=== PATIENT | female | born 1990 | race Caucasian/White ===

== ENCOUNTER 2019-03-13 16:53 | Inpatient (IN) | payer OTHER ==
[2019-03-13] MEDS ORDERED: METHYLERGONOVINE 0.2 MG/ML 1 ML AMP IM PRN (17:21)
[2019-03-13] MEDS ORDERED: CARBOPROST TROMETHAMINE 250 MCG/ML 1 ML AMP IM PRN (17:21)
[2019-03-13] MEDS ORDERED: TERBUTALINE 1 MG/ML VIAL SQ PRN (17:21)
[2019-03-13] MEDS ORDERED: LIDOCAINE 0.5% (PF) 5 MG/ML (50 ML SDV) SQ PRN (17:21)
[2019-03-13] MEDS ORDERED: OXYTOCIN 10 UNIT/ML 1 ML VIAL IM PRN (17:21)
[2019-03-13] MEDS ORDERED: BUTORPHANOL 1 MG/ML 1 ML VIAL IV PRN (17:23)
[2019-03-13] MEDS: LACTATED RINGERS 1,000 ML IV SCH ×3 (18:01→21:27)
[2019-03-13] MEDS: OXYTOCIN 30 UNITS/500 ML NS 30 UNIT in SALINE 1 500ML.BAG IV SCH (18:02)
[2019-03-13 18:15] VITALS: BMI 33.1
[2019-03-13 18:19] LABS: Basophils % (A) 0 %; Eosinophils # (A) 0.1 k/uL (0-0.7); Eosinophils % (A) 1 %; HCT 38.6 % (34.0-46.0); HGB 12.7 gm/dL (11.4-16.0); Lymphocytes # (A) 1.5 k/uL (1.0-4.8); Lymphocytes % (A) 13 %; MCH 29.2 pg (25.0-35.0); MCHC 32.8 g/dL (31.0-37.0); MCV 89.1 fL (80.0-100.0); Mean Platelet Volume 8.1; Monocytes # (A) 0.6 k/uL (0-1.0); Monocytes % (A) 5 %; Neutrophils # (A) 9.3 k/uL (1.3-7.7); Neutrophils % (A) 79 %; Platelet Count 296 k/uL (150-450); RBC 4.33 m/uL (3.80-5.40); RDW 14.7 % (11.5-15.5); WBC 11.7 k/uL (3.8-10.6)
--- NOTE | 2019-03-13 18:36 | P.HPOB ---
History of Present Illness H&P Date: 03/13/19 Chief Complaint: 40 and one sevenths weeks, spontaneous rupture of membranes, early labor The patient is a 28-year-old 3 para 1011 admitted at 40 and one sevenths weeks as established by early ultrasound. She presents to labor and delivery with contractions and possible rupture of membranes which is confirmed in triage. There is some question as to when rupture may have occurred, possibly as early as this morning. All signs are reassuring with a reactive NST and irregular contractions. Her has been essentially uncomplicated though she did have a marginal lateral cord insertion for which growth ultrasounds were followed, the most recent at approximately 35 weeks demonstrating growth at that 91st percentile. Group B strep status is negative. Obstetrical history: 3 para 1011 with 1 early elective interruption of and one normal spontaneous vaginal delivery without complications. Current statistics are listed in history of present illness. EDC of 03/12/2019 was established by early ultrasound. Laboratory workup demonstrates a blood type of A+ with a negative antibody screen. Rubella status is immune. The remainder of the laboratory workup was within normal limits that she did have an early urinary tract infection which was treated and cured. One hour Glucola was within normal limits and group B strep status is negative. Gynecologic history: Unremarkable with no history of any infections to include STDs. Review of Systems Review of systems is confined to history of present illness. Past Medical History Past Medical History: No Reported History History of Any Multi-Drug Resistant Organisms: None Reported Past Surgical History: No Surgical Hx Reported Past Anesthesia/Blood Transfusion Reactions: No Reported Reaction Past Psychological History: No Psychological Hx Reported Smoking Status: Never smoker Past Alcohol Use History: None Reported Past Drug Use History: None Reported - Past Family History Mother Family Medical History: No Reported History Medications and Allergies Home Medications Medication Instructions Recorded Confirmed Type Pnv,Calcium 72/Iron/Folic Acid 1 tab PO DAILY 07/27/16 03/13/19 History [ Plus Tablet] Allergies Allergy/AdvReac Type Severity Reaction Status Date / Time No Known Allergies Allergy Verified 03/13/19 17:47 Exam Vital Signs Temp Pulse Resp BP Pulse Ox 03/13/19 17:19 98.3 F 94 16 125/77 98 Intake and Output 03/13/19 03/13/19 03/13/19 06:59 14:59 22:59 Other: Weight 90.446 kg In general, this is a well-developed, well-nourished white female in no acute distress. Her heart has a regular rhythm and rate without murmur. Her lungs are clear to auscultation bilaterally in all kim. Her abdomen is gravid, nondistended, has normal active bowel sounds, is soft, nontender, and without any palpable masses aside from uterine fundus. Her extremities are without any cyanosis, clubbing, or significant edema and are nontender to palpation bilatera lly. Digital cervical examination done traits of surgery approximate 2 cm dilated, 60% effaced, with the vertex in presentation at -2 station. Rupture of membranes of bag of water remaining in front of the head is carried out demonstrating possible light meconium-stained fluid. Results Result Diagrams: 03/13/19 17:55 Abnormal Lab Results - Last 24 Hours (Table) 03/13/19 Range/Units 17:55 WBC 11.7 H (3.8-10.6) k/uL Neutrophils # 9.3 H (1.3-7.7) k/uL Assessment and Plan (1) Spontaneous rupture of amniotic membranes Current Visit: No Status: Acute Code(s): ZBC9467 - SNOMED Code(s): 223780426 Plan: As the timing of spontaneous rupture is unclear, Pitocin augmentation has been started. I have further ruptured the membranes in front of the vertex. She will continue to have close maternal and surveillance and expectant management will be practiced. She is a good candidate for either IV or epidural analgesia, whichever she may choose. She has requested an epidural which will be placed once more active labor pattern is noted.
[2019-03-13] MEDS ORDERED: ROPIVACAINE 5MG/ML 20ML VIAL ONE (20:40)
[2019-03-13] MEDS ORDERED: SODIUM CHLORIDE 0.9% 100 ML BAG ONE (20:40)
[2019-03-13] MEDS ORDERED: fentaNYL (PF) 50 MCG/ML 5 ML AMP ONE (20:40)
[2019-03-14] MEDS ORDERED: ACETAMINOPHEN TAB 325 MG TAB PO PRN (00:31)
[2019-03-14] MEDS ORDERED: HYDROCORTISONE 2.5% RECTAL CREAM 30 GM TUBE RECTAL PRN (00:31)
[2019-03-14] MEDS ORDERED: WITCH HAZEL 1 EACH MED..PAD TOPICAL PRN (00:31)
[2019-03-14] MEDS ORDERED: SIMETHICONE 80 MG CHEWABLE PO PRN (00:31)
[2019-03-14] MEDS ORDERED: HYDROcodone/APAP 7.5-325MG 1 EACH TAB PO PRN (00:31)
[2019-03-14] MEDS ORDERED: diphenhydrAMINE 25 MG CAP PO PRN (00:31)
[2019-03-14] MEDS ORDERED: LANOLIN CREAM 5 GM TUBE TOPICAL PRN (00:31)
[2019-03-14] MEDS ORDERED: ZOLPIDEM 5 MG TAB PO PRN (00:31)
[2019-03-14] MEDS ORDERED: diphenhydrAMINE 50 MG CAP PO PRN (00:31)
[2019-03-14] MEDS ORDERED: diphenhydrAMINE 50 MG/ML 1 ML VIAL IVP PRN ×2 (00:31)
[2019-03-14] MEDS ORDERED: HYDROcodone/APAP 5-325MG 1 EACH TAB PO PRN (00:31)
[2019-03-14] MEDS ORDERED: BENZOCAINE/MENTHOL SPRAY 1 GM/SPRAY AEROSOL TOPICAL PRN (00:31)
--- NOTE | 2019-03-14 00:35 | P.PROBDLV ---
Vaginal Delivery Note - . Vaginal Delivery Note: The patient is a 28-year-old 3 para 1011 admitted at 40 and one sevenths weeks by good dating parameters. She is admitted with documented spontaneous rupture of membranes since possibly mid-to-late morning. Her was uncomplicated though she did have a marginal cord insertion by ultrasound and serial growth was demonstrated to be normal with her final growth ultrasound estimate at the 91st percentile. On labor and delivery, all signs were reassuri ng. She underwent rupture of membranes in front of the head which demonstrated possible light meconium-stained fluid. She had an epidural catheter placed her on the onset of the active phase of labor and made fairly rapid progress through the active phase to complete. She then pushed over the course of approximately 20 minutes to a normal spontaneous vaginal delivery of a viable 9 lbs. 3 oz. baby boy with Apgars of 9 at 1 minute and 9 at 5 minutes delivered in the right occiput anterior position. There was a mild shoulder dystocia encountered which was reduced solely with Raul maneuver. The placenta was delivered spontaneously, intact, and grossly normal with a grossly normal marginally inserted three-vessel cord. A second-degree midline laceration was noted, likely over the site of a previous laceration or episiotomy scar and was repaired in standard fashion using 3-0 chromic catgut without difficulty. Estimated blood loss for the case is approximately 150 mL. There were no complications. All sponge, instrument, and needle counts were correct. Both mother and infant are resting comfortably in recovery.
[2019-03-14] MEDS ORDERED: OXYTOCIN 20 UNITS/1000 ML NS 1,000 ML IV SCH (00:45)
[2019-03-14] MEDS: IBUPROFEN 600 MG TAB PO PRN ×3 (06:39→19:39)
[2019-03-14] MEDS: SENNOSIDES-DOCUSATE SODIUM 1 EACH TAB PO SCH ×2 (09:06→19:40)
--- NOTE | 2019-03-14 09:41 | P.PNOBGVD ---
Subjective - Subjective Patient reports: Reports appetite normal, Reports voiding normally, Reports pain well controlled, Reports ambulating normally : doing well Objective - Latest Vital Signs Latest vital signs: Vital Signs Temp Pulse Resp BP Pulse Ox 03/14/19 09:04 98.2 F 90 16 113/72 03/14/19 04:00 99.0 F 110 H 18 121/73 96 03/14/19 02:18 99.3 F 102 H 18 112/58 03/14/19 01:48 99.2 F 107 H 18 112/57 03/14/19 01:18 99.6 F 112 H 18 104/57 03/14/19 01:03 110 H 16 116/68 03/14/19 00:48 109 H 16 128/74 03/14/19 00:33 99.1 F 110 H 16 107/63 98 03/14/19 00:18 112 H 17 112/58 03/13/19 17:19 98.3 F 94 16 125/77 98 03/13/19 16:57 98.3 F 94 16 125/77 98 Intake and Output 03/13/19 03/14/19 03/14/19 22:59 06:59 14:59 Intake Total 2700 Output Total 200 Balance 2500 Intake: IV 2500 Lactated Ringers 1,000 ml 2500 @ 125 mls/hr IV .[facility] Rx#:[id number] Oral 200 Output: Urine 200 Other: Weight 90.446 kg - Exam Extremities: Present: normal Abdomen: Present: normal appearance, soft Uterus: Present: normal, firm (The uterine fundus is tonic and nontender below the umbilicus.) - Labs Labs: Abnormal Lab Results - Last 24 Hours (Table) 03/13/19 Range/Units 17:55 WBC 11.7 H (3.8-10.6) k/uL Neutrophils # 9.3 H (1.3-7.7) k/uL Assessment and Plan (1) Spontaneous rupture of amniotic membranes Current Visit: Yes Status: Acute Code(s): CPH0866 - SNOMED Code(s): 853258842 (2) Normal spontaneous vaginal delivery Current Visit: Yes Status: Acute Code(s): O80 - ENCOUNTER FOR FULL-TERM UNCOMPLICATED DELIVERY SNOMED Code(s): 57781711 Plan: Continue routine care. I would anticipate discharge home tomorrow pending no complications.
[2019-03-14] MEDS: OXYTOCIN 30 UNITS/500 ML NS 30 UNIT in SALINE 1 500ML.BAG IV SCH (20:15)
[2019-03-14] MEDS: LACTATED RINGERS 1,000 ML IV SCH (20:15)
[2019-03-15] MEDS: IBUPROFEN 600 MG TAB PO PRN (08:25)
--- NOTE | 2019-03-15 08:30 | P.DS ---
Providers Date of admission: 03/13/19 17:13 Expected date of discharge: 03/15/19 Attending physician: Pratibha Dominguez Primary care physician: Stated None - Discharge Diagnosis(es) (1) Spontaneous rupture of amniotic membranes Current Visit: Yes Status: Acute (2) Normal spontaneous vaginal delivery Current Visit: Yes Status: Acute Hospital Course: The patient is a 28-year-old 3 para 1011 admitted at 40 and one sevenths weeks by good dating parameters. She presents labor and delivery with documented spontaneous rupture of membranes. On admission, all signs are reassuring with reactive NST and irregular contractions. Her was uncomplicated though she had a marginal cord insertion and was found with growth at the 91st percentile at approximate 35 weeks. Group B strep status was negative. On labor and delivery, she had Pitocin augmentation started and had a n upper catheter placed for analgesia. She progressed reasonably quickly to complete and then pushed to a normal spontaneous vaginal delivery of a viable 9 lbs. 3 oz. baby boy with Apgars of 9 at 1 minute and 9 at 5 minutes. There was a mild shoulder dystocia which was reduced slowly with Raul maneuver. Her course was unremarkable vital signs remained stable and her temperature was afebrile throughout. She was deemed stable for discharge on day #1 was discharged home to follow-up in the office in 6 weeks' time routinely. Discharge instructions included calling for any significantly increased bleeding or foul-smelling lochia, significantly increased fever abdominal pain, perineal complaints, breast complaints, or anything else that concerned her. She was additionally instructed to have nothing in the vagina for at least 6 weeks time to include intercourse. She understood her instructions and agrees to follow up as noted above. Discharge medications inc luded continued vitamins as she has opted to breast-feed. She otherwise was to use [id number] analgesic pain medications as needed. Maternal blood type is A+ and rubella status is immune. Procedures: #1. Pitocin augmentation #2. Artificial rupture of membranes #3. Epidural analgesia #4. Normal spontaneous vaginal delivery #5. Repair of perineal lace ration Patient Condition at Discharge: Stable Plan - Discharge Summary New Discharge Prescriptions: No Action Pnv,Calcium 72/Iron/Folic Acid [ Plus Tablet] 1 tab PO DAILY Discharge Medication List Pnv,Calcium 72/Iron/Folic Acid [ Plus Tablet] 1 tab PO DAILY 07/27/16 [History] Follow up Appointment(s)/Referral(s): Pratibha Dominguez MD [STAFF PHYSICIAN] - 6 Weeks Discharge Disposition: HOME SELF-CARE
[2019-03-15 09:55] VITALS: BP 129/84; PULSE 75; RESP 16; TEMP 98.7
[2019-03-15] MEDS: SENNOSIDES-DOCUSATE SODIUM 1 EACH TAB PO SCH (09:56)
== END 2019-03-15 11:05 | disposition home or self-care (01) | DRG 807 ==
LOC: FBPOP 16:53 → 4FBP 17:13
PROVIDERS: ADMIT Obstetrics & Gynecology; ATTEND Obstetrics & Gynecology
PROC: 10E0XZZ Delivery of Products of Conception, External Approach (ICD-10-PCS; principal; 2019-03-13)
PROC: 0KQM0ZZ Repair Perineum Muscle, Open Approach (ICD-10-PCS; 2019-03-13)
PROC: 00HU33Z Insertion of Infusion Device into Spinal Canal, Percutaneous Approach (ICD-10-PCS; 2019-03-13)
DX: O43.199 Other malformation of placenta, unspecified trimester (principal); O66.0 Obstructed labor due to shoulder dystocia; O77.0 Labor and delivery complicated by meconium in amniotic fluid; O99.62 Diseases of the digestive system complicating childbirth; K21.9 Gastro-esophageal reflux disease without esophagitis; O70.1 Second degree perineal laceration during delivery; Z37.0 Single live birth; Z3A.40 40 weeks gestation of pregnancy
CPT/HCPCS: 59025; 84112; 85025; 86850; 86900; 86901; 99213

== ENCOUNTER 2020-10-05 06:00 | Inpatient (IN) | payer OTHER ==
[2020-10-05] MEDS ORDERED: TERBUTALINE 1 MG/ML VIAL SQ PRN (06:15)
[2020-10-05] MEDS ORDERED: OXYTOCIN 30 UNITS/500 ML NS 30 UNIT in SALINE 1 500ML.BAG IV SCH (06:15)
[2020-10-05] MEDS ORDERED: LIDOCAINE 0.5% (PF) 5 MG/ML (50 ML SDV) SQ PRN (06:15)
[2020-10-05] MEDS ORDERED: PENICILLIN G POTASSIUM 5,000,000 UNIT in DEXTROSE 5% IN WATER 100 ML IVPB STA ×2 (06:15)
[2020-10-05] MEDS ORDERED: METHYLERGONOVINE 0.2 MG/ML 1 ML AMP IM PRN (06:15)
[2020-10-05] MEDS ORDERED: OXYTOCIN 10 UNIT/ML 1 ML VIAL IM PRN (06:15)
[2020-10-05] MEDS ORDERED: CARBOPROST TROMETHAMINE 250 MCG/ML 1 ML AMP IM PRN (06:15)
[2020-10-05] MEDS: LACTATED RINGERS 1,000 ML IV SCH ×2 (06:19→08:23)
[2020-10-05 06:49] LABS: Anisocytosis Slight; HCT 36.4 % (34.0-46.0); HGB 11.8 gm/dL (11.4-16.0); Hypochromasia Moderate; MCH 25.2 pg (25.0-35.0); MCHC 32.4 g/dL (31.0-37.0); MCV 77.8 fL (80.0-100.0); Mean Platelet Volume 8.6; Microcytosis Slight; Platelet Count 251 k/uL (150-450); Poikilocytosis Moderate; RBC 4.68 m/uL (3.80-5.40); RDW 16.4 % (11.5-15.5); WBC 10.9 k/uL (3.8-10.6)
[2020-10-05 07:14] LABS: Eosinophils # (M) 0.11 k/uL (0-0.7); Lymphocytes # (M) 1.31 k/uL (1.0-4.8); Monocytes # (M) 0.55 k/uL (0-1.0); Neutrophils # (M) 8.94 k/uL (1.3-7.7); Neutrophils % (M) 82 %; Nucleated Red Blood Cells 0 /100 WBC (0-0); Total Cells Counted 100
--- NOTE | 2020-10-05 07:53 | P.HPOB ---
History of Present Illness H&P Date: 10/05/20 Chief Complaint: Strong regular uterine contractions This is a 30-year-old female 4 para 2012 EDC 09/29/2020 at 40-6/7 weeks' gestation. Patient was scheduled for induction with favorable multiparous cervix for postdates . However she reported this morning in active spontaneous labor. Fetus is been active throughout the . She denies vaginal bleeding or fluid leakage. Current medications vitamins daily. ALLERGIES none known. Family history significant for diabetes mellitus and hypercholesterolemia. Obstetric history normal spontaneous vaginal deliveries 2, unremarkable. 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 She denies alcohol tobacco or drug use. Obstetric history is significant for blood type A+, rubella status immune. Positive group B strep cultures. Gonorrhea and chlamydia cultures, HIV testing, urine culture, hepatitis B surface antigen all negative. One-hour Glucola 128.. On exam this is a pleasant white female 5 foot 5 inches 207 pounds blood pressure 140/87 on admission, pulse 108. Patient is visibly uncomfortable. The general physical exam is within normal limits. Cervix is 3 cm dilated, -2 station, 70-80% effaced, vertex presentation. Artificial amniorrhexis reveals clear fluid. heart rate is consistent with reactive NST. Uterine contractions are occurring every 3 minutes apart of moderate intensity. Impression: 40-6/7 weeks intrauterine , early active labor, positive group B strep cultures, first dose of antibiotics being administered. Plan epidural is requested and anesthesia is injected. Continue antibiotic prophylaxis per protocol. Continue oxytocin augmentation if needed. Close maternal and surveillance. Anticipate normal spontaneous vaginal delivery. Review of Systems Constitutional: Reports as per HPI Past Medical History Past Medical History: No Reported History History of Any Multi-Drug Resistant Organisms: None Reported Past Surgical History: No Surgical Hx Reported Past Anesthesia/Blood Transfusion Reactions: No Reported Reaction Past Psychological History: No Psychological Hx Reported Smoking Status: Never smoker Past Alcohol Use History: None Reported Past Drug Use History: None Reported - Past Family History Mother Family Medical History: No Reported History Medications and Allergies Home Medications Medication Instructions Recorded Confirmed Type Pnv,Calcium 72/Iron/Folic Acid 1 tab PO DAILY 07/27/16 10/05/20 History [ Plus Tablet] Allergies Allergy/AdvReac Type Severity Reaction Status Date / Time No Known Allergies Allergy Verified 03/13/19 17:47 Exam Vital Signs Temp Pulse Resp BP 10/05/20 06:07 97.7 F 108 H 16 140/87 Intake and Output 10/04/20 10/05/20 10/05/20 22:59 06:59 14:59 Other: Weight 93.894 kg See dictation under HPI please Results Result Diagrams: 10/05/20 06:15 Abnormal Lab Results - Last 24 Hours (Table) 10/05/20 Range/Units 06:15 WBC 10.9 H (3.8-10.6) k/uL MCV 77.8 L (80.0-100.0) fL RDW 16.4 H (11.5-15.5) % Neutrophils # (Manual) 8.94 H (1.3-7.7) k/uL Assessment and Plan Assessment: 40-6/7 weeks intrauterine , active spontaneous labor. Positive group B strep cultures, antibiotics running. All signs reassuring. Plan: Continue close maternal and surveillance. Continue antibiotics per hospital protocol. Anesthesia is notified regarding request for epidural. Anticipate normal spontaneous vaginal delivery. Time with Patient: Less than 30
[2020-10-05] MEDS ORDERED: SODIUM CHLORIDE 0.9% 100 ML BAG ONE (07:58)
[2020-10-05] MEDS ORDERED: ROPIVACAINE 5MG/ML 20ML VIAL ONE (07:58)
[2020-10-05] MEDS ORDERED: fentaNYL (PF) 50 MCG/ML 5 ML AMP ONE (07:58)
[2020-10-05] MEDS ORDERED: PENICILLIN G POTASSIUM 2,500,000 UNIT in DEXTROSE 5% IN WATER 100 ML IVPB SCH ×2 (10:16)
[2020-10-05] MEDS ORDERED: diphenhydrAMINE 25 MG CAP PO PRN (12:17)
[2020-10-05] MEDS ORDERED: LANOLIN CREAM 5 GM TUBE TOPICAL PRN (12:17)
[2020-10-05] MEDS ORDERED: ZOLPIDEM 5 MG TAB PO PRN (12:17)
[2020-10-05] MEDS ORDERED: diphenhydrAMINE ELIXIR 25 MG/10 ML CUP PO PRN (12:17)
[2020-10-05] MEDS ORDERED: diphenhydrAMINE 50 MG CAP PO PRN (12:17)
[2020-10-05] MEDS ORDERED: diphenhydrAMINE 50 MG/ML 1 ML VIAL IVP PRN ×2 (12:17)
[2020-10-05] MEDS ORDERED: BENZOCAINE/MENTHOL SPRAY 1 GM/SPRAY AEROSOL TOPICAL PRN (12:17)
[2020-10-05] MEDS ORDERED: HYDROCORTISONE 2.5% RECTAL CREAM 30 GM TUBE RECTAL PRN (12:17)
[2020-10-05] MEDS ORDERED: SIMETHICONE 80 MG CHEWABLE PO PRN (12:17)
--- NOTE | 2020-10-05 12:17 | P.PROBDLV ---
Vaginal Delivery Note - . Vaginal Delivery Note: This is a 30-year-old white female 4 para 2012 EDC 09/29/2020 at 40-6/7 weeks' gestation. Patient presented in active spontaneous labor, previously scheduled for induction for postdates with favorable multiparous cervix. Positive group B strep cultures, blood type B positive, rubella status immune. Please see dictated history and physical for details. Artificial amniorrhexis revealed clear fluid. Oxytocin augmentation was started. Penicillin G prophylaxis was given 2 doses for positive group B strep cultures. Patient progressed well through the first stage of labor and became completely dilated at 1119 hours. She began the second stage of labor at that time. Patient pushed successfully and eventually was noted. Perineal body was prepped and draped in usual sterile fashion. Infant's head delivered occiput anterior and she restituted accordingly. There was no nuchal cord noted. The left or anterior shoulder was delivered from underneath the pubic symphysis with the aid of suprapubic pressure. Exaggerated Raul maneuver alone did not alleviate or clear the shoulder, however with the application of suprapubic pressure the shoulder easily delivered. Patient was officially delivered then of a liveborn female infant at 1155 hours. Umbilical cord was doubly clamped and ligated, she was handed to waiting nurses for evaluation where scores of 7 and 9 at one and 5 minutes respectively were given. Infant weight 10 pounds 8.4 ounces, or 4775 g. Placenta delivered spontaneously, it was inspected and noted to be intact with trivascular cord at 1157 hours. Careful inspection of the cervix, vagina, perineum, periurethral, and perirectal areas revealed a small second-degree perineal laceration that was easily repaired in the usual fashion using 3-0 Vicryl suture. Total estimated blood loss 200 mL's. All sponge needle and enhancement counts are correct at the end of the procedure.
[2020-10-05] MEDS: IBUPROFEN 600 MG TAB PO PRN ×2 (16:01→21:56)
[2020-10-05 16:53] VITALS: RESP 16
[2020-10-05] MEDS: ACETAMINOPHEN TAB 325 MG TAB PO PRN (18:42)
[2020-10-05] MEDS: SENNOSIDES-DOCUSATE SODIUM 1 EACH TAB PO SCH (21:57)
[2020-10-06 00:16] VITALS: PULSE 92
[2020-10-06] MEDS: IBUPROFEN 600 MG TAB PO PRN ×2 (03:31→09:50)
[2020-10-06 09:40] VITALS: BP 124/82; TEMP 98
--- NOTE | 2020-10-06 09:58 | P.DS ---
Providers Date of admission: 10/05/20 06:00 Expected date of discharge: 10/06/20 Attending physician: Pratibha Dominguez Primary care physician: Stated None Hospital Course: This is a 30-year-old white female 4 para 2012 EDC 09/29/2020 at 40-6/7 weeks' gestation. Patient was initially scheduled for induction for postdates , suspected LGA, and favorable multiparous cervix. She did however presented in early spontaneous active labor. is remarkable for positive group B strep cultures, blood type A+, rubella status immune. Please see my dictated history and physical for details. Penicillin G was given 2 units as per hospital protocol. Oxytocin augmentation was also given. Artificial amniorrhexis revealed clear fluid. Patient went on to deliver vaginally a liveborn female infant with scores of 7 and 9 at one and 5 minutes respectively. There was a shoulder dystocia that was alleviated with Raul maneuver and suprapubic pressure. weighed 4775 g or 10 pounds 8.4 ounces. There was an estimated blood loss recorded of 200 mL, and a small second-degree laceration easily repaired. Please see my dictated delivery note for details. This morning the patient and her baby are both doing very well. The patient is voiding, and bleeding, passing flatus without difficulty. Vital signs are stable and she is afebrile. Fundus is firm and in the midline, symmetric and 18 week size. Extremities are negative for edema. Perineal body is clean and dry. Minimal lochia rubra. Patient has no complaints. Patient is being discharged home in very good condition. She will follow-up in the office with me in 6 weeks. I have reminded her no intercourse, tampons or douching. She will use [id number] ibuprofen as needed for pain, will call with any fevers shakes or chills, foul smelling or copious lochia, with the passage of large blood clots, with any pain not alleviated by Motrin, or indeed with any concerns. Contraceptive options have been discussed and we will review this further in the office. Assessment: Doing well day #1 Patient Condition at Discharge: Good Plan - Discharge Summary Discharge Rx Participant: No New Discharge Prescriptions: No Action Pnv,Calcium 72/Iron/Folic Acid [ Plus Tablet] 1 tab PO DAILY Discharge Medication List Pnv,Calcium 72/Iron/Folic Acid [ Plus Tablet] 1 tab PO DAILY 07/27/16 [History] Follow up Appointment(s)/Referral(s): Pratibha Dominguez MD [STAFF PHYSICIAN] - 6 Weeks Discharge Disposition: HOME SELF-CARE
[2020-10-06] MEDS: SENNOSIDES-DOCUSATE SODIUM 1 EACH TAB PO SCH (10:20)
[2020-10-06] MEDS: ACETAMINOPHEN TAB 325 MG TAB PO PRN (11:33)
== END 2020-10-06 14:45 | disposition home or self-care (01) | DRG 807 ==
LOC: 4FBP 06:00
PROVIDERS: ADMIT Obstetrics & Gynecology; ATTEND Obstetrics & Gynecology
PROC: 10E0XZZ Delivery of Products of Conception, External Approach (ICD-10-PCS; principal; 2020-10-05)
PROC: 0KQM0ZZ Repair Perineum Muscle, Open Approach (ICD-10-PCS; 2020-10-05)
PROC: 10907ZC Drainage of Amniotic Fluid, Therapeutic from Products of Conception, Via Natural or Artificial Opening (ICD-10-PCS; 2020-10-05)
PROC: 3E0R3BZ Introduction of Anesthetic Agent into Spinal Canal, Percutaneous Approach (ICD-10-PCS; 2020-10-05)
DX: O48.0 Post-term pregnancy (principal); Z37.0 Single live birth; Z3A.40 40 weeks gestation of pregnancy; O70.1 Second degree perineal laceration during delivery; O99.824 Streptococcus B carrier state complicating childbirth; O66.0 Obstructed labor due to shoulder dystocia; Z79.899 Other long term (current) drug therapy; Z83.3 Family history of diabetes mellitus
CPT/HCPCS: 85025; 86850; 86900; 86901

== ENCOUNTER 2021-03-16 14:38 | Observation (INO) | payer OTHER ==
[2021-03-16] MEDS ORDERED: SODIUM CHLORIDE 0.9% 1,000 ML IV STA (15:20)
[2021-03-16] MEDS ORDERED: ACETAMINOPHEN TAB 500 MG TAB PO STA (15:26)
[2021-03-16 15:27] LABS: Appearance,Urine Cloudy (Clear); Bacteria,Urine Occasional /hpf; Bilirubin,Urine Negative (Negative); Blood,Urine Small (Negative); Color,Urine Yellow; Glucose,Urine (UA) Negative (Negative); Ketones,Urine Negative (Negative); Leukocyte Esterase,Urine Large (Negative); Mucus,Urine Many /hpf; Nitrite,Urine Negative (Negative); PH, Urine 7.5 (5.0-8.0); Protein,Urine 2+ (Negative); RBC,Urine 14 /hpf (0-5); Specific Gravity,Urine 1.023 (1.001-1.035); Squamous Epithelial Cell,Urine 20 /hpf (0-4); Urobilinogen,Urine <2.0 mg/dL (<2.0); WBC,Urine >182 /hpf (0-5)
--- NOTE | 2021-03-16 15:40 | ED ---
General Adult HPI - General Chief complaint: Abdominal Pain Stated complaint: Side and Back Pain Time Seen by Provider: 03/16/21 15:12 Source: patient, RN notes reviewed, old records reviewed Mode of arrival: ambulatory Limitations: no limitations - History of Present Illness Initial comments: 30-year-old female with left flank pain. Pain began yesterday. She had a similar episode one month ago which resolved without treatment. Pain is constant. She has some generalized myalgia as well. She is noted to be febrile in triage. She had some associated nausea and vomiting. No dysuria or urinary frequency. She is otherwise healthy. No anterior abdominal pain. No cough or URI symptoms. - Related Data Home Medications Medication Instructions Recorded Confirmed Pnv,Calcium 72/Iron/Folic Acid 1 tab PO DAILY 07/27/16 10/05/20 [ Plus Tablet] Allergies Allergy/AdvReac Type Severity Reaction Status Date / Time No Known Allergies Allergy Verified 03/16/21 14:56 Review of Systems ROS Statement: Those systems with pertinent positive or pertinent negative responses have been documented in the HPI. ROS Other: All systems not noted in ROS Statement are negative. Past Medical History Past Medical History: No Reported History History of Any Multi-Drug Resistant Organisms: None Reported Past Surgical History: No Surgical Hx Reported Past Anesthesia/Blood Transfusion Reactions: No Reported Reaction Past Psychological History: No Psychological Hx Reported Smoking Status: Never smoker Past Alcohol Use History: Occasional Past Drug Use History: None Reported - Past Family History Mother Family Medical History: No Reported History General Exam Limitations: no limitations General appearance: alert, in no apparent distress Head exam: Present: atraumatic, normocephalic Eye exam: Present: normal appearance, PERRL ENT exam: Present: normal exam Neck exam: Present: normal inspection. Absent: tenderness, meningismus Respiratory exam: Present: normal lung sounds bilaterally. Absent: respiratory distress, wheezes Cardiovascular Exam: Present: regular rate, normal rhythm GI/Abdominal exam: Present: soft. Absent: distended, tenderness, guarding Extremities exam: Present: normal inspection. Absent: normal capillary refill, pedal edema Back exam: Present: CVA tenderness (L) Neurological exam: Present: alert, oriented X3, CN II-XII intact. Absent: motor sensory deficit Psychiatric exam: Present: normal affect, normal mood Skin exam: Present: warm, dry, intact. Absent: cyanosis, diaphoretic Course Vital Signs 03/16/21 03/16/21 14:53 16:30 Temperature 100.5 F H 102.3 F H Pulse Rate 76 96 Respiratory 18 20 Rate Blood Pressure 109/54 123/67 O2 Sat by Pulse 100 99 Oximetry Medical Decision Making - Medical Decision Making 30-year-old female with left flank pain, fever, myalgia. Initial workup does reveal UTI with a mild leukocytosis at 12. X-ray performed which shows a calculus suspicious for obstructing stone, CT ordered and reveals a left-sided hydraulic with a proximal obstructing 1 cm stone. Patient started on a ntibiotics, given IV fluid. I did discuss case with Dr. Carlson covering for urology who will admit for likely stent placement. - Lab Data Result diagrams: 03/16/21 15:41 03/16/21 15:41 Lab Results 03/16/21 03/16/21 03/16/21 Range/Units 15:10 15:10 15:41 WBC 12.0 H (3.8-10.6) k/uL RBC 4.64 (3.80-5.40) m/uL Hgb 14.0 (11.4-16.0) gm/dL Hct 40.5 (34.0-46.0) % MCV 87.3 (80.0-100.0) fL MCH 30.2 (25.0-35.0) pg MCHC 34.6 (31.0-37.0) g/dL RDW 12.9 (11.5-15.5) % Plt Count 248 (150-450) k/uL MPV 7.0 Neutrophils % 91 % Lymphocytes % 3 % Monocytes % 5 % Eosinophils % 1 % Basophils % 0 % Neutrophils # 10.9 H (1.3-7.7) k/uL Lymphocytes # 0.4 L (1.0-4.8) k/uL Monocytes # 0.6 (0-1.0) k/uL Eosinophils # 0.1 (0-0.7) k/uL Basophils # 0.0 (0-0.2) k/uL PT (9.0-12.0) sec INR (<1.2) APTT (22.0-30.0) sec Sodium (137-145) mmol/L Potassium (3.5-5.1) mmol/L Chloride (98-107) mmol/L Carbon Dioxide (22-30) mmol/L Anion Gap mmol/L BUN (7-17) mg/dL Creatinine (0.52-1.04) mg/dL Est GFR (CKD-EPI)AfAm (>60 ml/min/1.73 sqM) Est GFR (CKD-EPI)NonAf (>60 ml/min/1.73 sqM) Glucose (74-99) mg/dL Plasma Lactic Acid Errol (0.7-2.0) mmol/L Calcium (8.4-10.2) mg/dL Total Bilirubin (0.2-1.3) mg/dL AST (14-36) U/L ALT (4-34) U/L Alkaline Phosphatase (38-126) U/L Total Protein (6.3-8.2) g/dL Albumin (3.5-5.0) g/dL Amylase (30-110) U/L Lipase (23-300) U/L Urine Color Yellow Urine Appearance Cloudy H (Clear) Urine pH 7.5 (5.0-8.0) Ur Specific Goodrich 1.023 (1.001-1.035) Urine Protein 2+ H (Negative) Urine Glucose (UA) Negative (Negative) Urine Ketones Negative (Negative) Urine Blood Small H (Negative) Urine Nitrite Negative (Negative) Urine Bilirubin Negative (Negative) Urine Urobilinogen <2.0 (<2.0) mg/dL Ur Leukocyte Esterase Large H (Negative) Urine RBC 14 H (0-5) /hpf Urine WBC >182 H (0-5) /hpf Urine WBC Clumps Few H (None) /hpf Ur Squamous Epith Cells 20 H (0-4) /hpf Urine Bacteria Occasional H (None) /hpf Urine Mucus Many H (None) /hpf Urine HCG, Qual Not Detected (Not Detectd) 03/16/21 03/16/21 03/16/21 Range/Units 15:41 15:41 15:41 WBC (3.8-10.6) k/uL RBC (3.80-5.40) m/uL Hgb (11.4-16.0) gm/dL Hct (34.0-46.0) % MCV (80.0-100.0) fL MCH (25.0-35.0) pg MCHC (31.0-37.0) g/dL RDW (11.5-15.5) % Plt Count (150-450) k/uL MPV Neutrophils % % Lymphocytes % % Monocytes % % Eosinophils % % Basophils % % Neutrophils # (1.3-7.7) k/uL Lymphocytes # (1.0-4.8) k/uL Monocytes # (0-1.0) k/uL Eosinophils # (0-0.7) k/uL Basophils # (0-0.2) k/uL PT 11.7 (9.0-12.0) sec INR 1.1 (<1.2) APTT 23.6 (22.0-30.0) sec Sodium 139 (137-145) mmol/L Potassium 4.0 (3.5-5.1) mmol/L Chloride 106 (98-107) mmol/L Carbon Dioxide 24 (22-30) mmol/L Anion Gap 9 mmol/L BUN 9 (7-17) mg/dL Creatinine 0.71 (0.52-1.04) mg/dL Est GFR (CKD-EPI)AfAm >90 (>60 ml/min/1.73 sqM) Est GFR (CKD-EPI)NonAf >90 (>60 ml/min/1.73 sqM) Glucose 113 H (74-99) mg/dL Plasma Lactic Acid Errol 1.1 (0.7-2.0) mmol/L Calcium 9.7 (8.4-10.2) mg/dL Total Bilirubin 1.1 (0.2-1.3) mg/dL AST 34 (14-36) U/L ALT 69 H (4-34) U/L Alkaline Phosphatase 125 (38-126) U/L Total Protein 7.0 (6.3-8.2) g/dL Albumin 4.5 (3.5-5.0) g/dL Amylase 45 (30-110) U/L Lipase 39 (23-300) U/L Urine Color Urine Appearance (Clear) Urine pH (5.0-8.0) Ur Specific Goodrich (1.001-1.035) Urine Protein (Negative) Urine Glucose (UA) (Negative) Urine Ketones (Negative) Urine Blood (Negative) Urine Nitrite (Negative) Urine Bilirubin (Negative) Urine Urobilinogen (<2.0) mg/dL Ur Leukocyte Esterase (Negative) Urine RBC (0-5) /hpf Urine WBC (0-5) /hpf Urine WBC Clumps (None) /hpf Ur Squamous Epith Cells (0-4) /hpf Urine Bacteria (None) /hpf Urine Mucus (None) /hpf Urine HCG, Qual (Not Detectd) Disposition Clinical Impression: Hydronephrosis with renal and ureteral calculus obstruction, UTI (urinary tract infection) Disposition: ADMITTED IP TO THIS HOSP Condition: Stable Is patient prescribed a controlled substance at d/c from ED?: No Referrals: None,Stated [Primary Care Provider] - 1-2 days Decision to Admit Reason: Admit from EC Decision Date: 03/16/21 Decision Time: 17:01
[2021-03-16] MEDS ORDERED: cefTRIAXone IN SWFI 1,000 MG/10 ML SYRINGE IVP STA (15:51)
[2021-03-16 15:53] LABS: Basophils % (A) 0 %; Eosinophils # (A) 0.1 k/uL (0-0.7); Eosinophils % (A) 1 %; HCT 40.5 % (34.0-46.0); Lymphocytes # (A) 0.4 k/uL (1.0-4.8); Lymphocytes % (A) 3 %; MCH 30.2 pg (25.0-35.0); MCHC 34.6 g/dL (31.0-37.0); MCV 87.3 fL (80.0-100.0); Monocytes # (A) 0.6 k/uL (0-1.0); Monocytes % (A) 5 %; Neutrophils # (A) 10.9 k/uL (1.3-7.7); Neutrophils % (A) 91 %; Platelet Count 248 k/uL (150-450); RBC 4.64 m/uL (3.80-5.40); RDW 12.9 % (11.5-15.5)
[2021-03-16 16:05] LABS: INR 1.1 (<1.2); Partial Thromboplastin Time 23.6 sec (22.0-30.0); Prothrombin Time 11.7 sec (9.0-12.0)
--- NOTE | 2021-03-16 16:10 | XR ---
KUB HISTORY: Left flank pain KUB submitted on 2 images There is an oval calcification superimposed over the left L3 transverse process measuring approximate ly 7 mm to 8 mm in size. Calcifications within the pelvis thought to be new accounts banking representative of phleboliths . Lung bases are clear. There is no evident bowel obstruction or pneumoperitoneum. Bone mineralizatio n is normal. There is partial sacralization of the L5 transverse process on the right. There is a met allic post through the umbilical integument. IMPRESSION: Findings may represent a proximal left ureteral calculus.
[2021-03-16 16:11] LABS: ALT 69 U/L (4-34); AST 34 U/L (14-36); African American GFR (CKD) >90 (>60 ml/min/1.73 sqM); Albumin 4.5 g/dL (3.5-5.0); Alkaline Phosphatase 125 U/L (38-126); Amylase 45 U/L (30-110); Anion Gap 9 mmol/L; Blood Urea Nitrogen 9 mg/dL (7-17); Calcium 9.7 mg/dL (8.4-10.2); Carbon Dioxide 24 mmol/L (22-30); Chloride 106 mmol/L (98-107); Glucose 113 mg/dL (74-99); Lipase 39 U/L (23-300); Non-African American GFR(CKD) >90 (>60 ml/min/1.73 sqM); Sodium 139 mmol/L (137-145); Total Bilirubin 1.1 mg/dL (0.2-1.3)
--- NOTE | 2021-03-16 16:45 | CT ---
EXAMINATION TYPE: CT abdomen pelvis wo con DATE OF EXAM: 03/16/2021 COMPARISON: None HISTORY: Left flank/back pain CT DLP: 631.7 mGycm Automated exposure control for dose reduction was used. Images obtained from the diaphragm to the floor the pelvis without contrast. There is mild subsegmental atelectasis at the lung bases. Heart size is normal. There is no pericardi al effusion. Liver and spleen are intact. The bile ducts are not dilated. Stomach is intact. There is no pancreatic mass. Gallbladder appears normal. There is no adrenal mass. There is left-sided hydronephrosis and perinephric edema. There is 10 mm ob structing calculus at the ureteropelvic junction. The ureters are not dilated. There is no retroperitoneal adenopathy. The bladder distends smoothly. T here is no inguinal hernia. Uterus is anteverted. There is small amount of free fluid in the pelvis o n the right side that is low-density and could be physiologic. Appendix appears normal. There is no mesenteric edema. There is no ascites or free air. There is no b owel obstruction. There is 1 cm umbilical hernia that contains fat. The right kidney appears normal. The lumbar vertebra have normal alignment. Disc spaces are fairly normal. The posterior elements are intact. There is no compression fracture. Bony pelvis is intact. The hip joints are intact. IMPRESSION: Obstructing calculus at the left ureteropelvic junction with hydronephrosis and perinephric edema. No other calculus seen. Normal appendix.
[2021-03-16] MEDS ORDERED: ACETAMINOPHEN TAB 325 MG TAB PO PRN (16:57)
[2021-03-16] MEDS ORDERED: ONDANSETRON 4 MG/2 ML VIAL IVP PRN (16:57)
[2021-03-16] MEDS ORDERED: NALOXONE 0.4 MG/ML 1 ML VIAL IV PRN (16:57)
[2021-03-16] MEDS ORDERED: SODIUM CHLORIDE 0.9% 500 ML 500 ML IV ONE (17:02)
[2021-03-16] MEDS: SODIUM CHLORIDE 0.9% 1,000 ML IV SCH (17:58)
[2021-03-16] MEDS: KETOROLAC 15 MG/ML 1 ML VIAL IVP PRN (17:59)
[2021-03-16] MEDS ORDERED: PROPOFOL 10 MG/ML 20 ML VIAL IV ONE (18:45)
[2021-03-16] MEDS ORDERED: fentaNYL (PF) 50 MCG/ML 2 ML AMP ONE (18:45)
[2021-03-16] MEDS ORDERED: MIDAZOLAM 2 MG/2 ML VIAL ONE (18:45)
[2021-03-16] MEDS ORDERED: SODIUM CHLORIDE 0.9% 300 ML IV ONE (18:59)
[2021-03-16] MEDS ORDERED: HYDROmorphone 2 MG/ML 1 ML SYRINGE IVP PRN (19:04)
[2021-03-16] MEDS ORDERED: IBUPROFEN 200 MG TAB PO PRN (19:04)
--- NOTE | 2021-03-16 19:09 | P.OP ---
Date of Procedure: 03/16/21 Preoperative Diagnosis: Left ureteral stone with obstruction, pyelonephrosis, urinary tract infection with sepsis Postoperative Diagnosis: Same Procedure(s) Performed: Cystoscopy with insertion of 6 x 24 double-J catheter Anesthesia: MAC Surgeon: Isaac Carlson Estimated Blood Loss (ml): 0 Pathology: none sent Condition: stable Disposition: PACU Indications for Procedure: The patient is 30. In the last 24 hours she's had severe flank pain and myalgias fever or nausea vomiting. She came to emergency room was found to have infected urine, a 1 cm proximal ureteral stone and its obstructing, urinary tract infection with pyelonephrosis she comes for cystoscopy and stent placement Description of Procedure: Patient brought to the operating suite. She's placed on the operating table. She's placed lithotomy position with a sterile prep and drape after IV sedation. Cystoscopy Foroblique lens and 22-Ugandan sheath identifies normal urethra. There is some cystitis on the floor the bladder. The urine is somewhat cloudy. The ureteral are scissor both normal. An 035 wires passed up the ureter by the proximal ureteral stone seen on fluoroscopy. Over the wires passed a 6 x 24 double-J cath that coils in the renal pelvis and the bladder the bladder strain the patient's awake and returned recovery in good condition. She'll be placed in the hospital overnight. If she does well she'll be discharged home tomorrow. Pending cultures as to final antibiotic treatment.
[2021-03-16] MEDS: DEXTROSE 5%-0.45% NACL 1,000 ML IV SCH (21:34)
[2021-03-17] MEDS: KETOROLAC 15 MG/ML 1 ML VIAL IVP PRN ×2 (01:36→09:17)
[2021-03-17] MEDS: DEXTROSE 5%-0.45% NACL 1,000 ML IV SCH (01:38)
[2021-03-17] MEDS: SODIUM CHLORIDE 0.9% 1,000 ML IV SCH (03:17)
--- NOTE | 2021-03-17 07:32 | FL ---
Fluoroscopy History: LT RENAL STENT PLACEMENT LT RENAL STENT PLACEMENT. 6 secs FL. . 1 image saved.
[2021-03-17 07:48] LABS: Basophils % (A) 0 %; Eosinophils # (A) 0.2 k/uL (0-0.7); Eosinophils % (A) 1 %; HCT 36.7 % (34.0-46.0); HGB 12.7 gm/dL (11.4-16.0); Lymphocytes # (A) 1.1 k/uL (1.0-4.8); Lymphocytes % (A) 8 %; MCH 30.7 pg (25.0-35.0); MCHC 34.5 g/dL (31.0-37.0); MCV 89.2 fL (80.0-100.0); Mean Platelet Volume 7.2; Monocytes # (A) 0.6 k/uL (0-1.0); Monocytes % (A) 4 %; Neutrophils # (A) 12.8 k/uL (1.3-7.7); Neutrophils % (A) 87 %; Platelet Count 211 k/uL (150-450); RBC 4.12 m/uL (3.80-5.40); RDW 13.1 % (11.5-15.5); WBC 14.8 k/uL (3.8-10.6)
[2021-03-17 08:09] LABS: ALT 73 U/L (4-34); AST 53 U/L (14-36); African American GFR (CKD) >90 (>60 ml/min/1.73 sqM); Albumin 3.3 g/dL (3.5-5.0); Albumin/Globulin Ratio 1.4; Alkaline Phosphatase 104 U/L (38-126); Anion Gap 5 mmol/L; Blood Urea Nitrogen 7 mg/dL (7-17); Calcium 8.8 mg/dL (8.4-10.2); Carbon Dioxide 24 mmol/L (22-30); Chloride 109 mmol/L (98-107); Globulin 2.4 g/dL; Glucose 119 mg/dL (74-99); Non-African American GFR(CKD) >90 (>60 ml/min/1.73 sqM); Potassium 3.7 mmol/L (3.5-5.1); Sodium 138 mmol/L (137-145); Total Bilirubin 1.1 mg/dL (0.2-1.3); Total Protein 5.7 g/dL (6.3-8.2)
[2021-03-17 08:14] VITALS: BP 84/53; PULSE 82; RESP 17; TEMP 99
--- NOTE | 2021-03-17 08:25 | P.DS ---
Providers Date of admission: 03/16/21 16:58 Attending physician: Isaac Carlson Primary care physician: Stated None Hospital Course: The patient is 30. She presented to the emergency room yesterday with an elevated temperature infected urine and obstructing stone, pyonephrosis and a urinary tract infection with sepsis. A left double-J catheters placed emergently to drain the pyonephrosis. She has done well overnight. She is feeling better. She is afebrile. Her pain is for the most part gone The patient be discharged home on Cipro 500 twice a day. She'll follow-up in the office in one week. Pending cultures as to whether or not have to change to Cipro. She'll be set up as an outpatient for ureteroscopy and stone manipulation. This is been discussed with the patient. She's been given a card. She'll make sure she follows up in the office. Patient Condition at Discharge: Good Plan - Discharge Summary Discharge Rx Participant: Yes New Discharge Prescriptions: New Ciprofloxacin HCl [Cipro] 500 mg PO Q12H 1 Days #20 tab No Action Ibuprofen [Motrin Ib] 800 mg PO Q8H PRN PRN Reason: Pain Discharge Medication List Ibuprofen [Motrin Ib] 800 mg PO Q8H PRN 03/16/21 [History] Ciprofloxacin HCl [Cipro] 500 mg PO Q12H 1 Days #20 tab 03/17/21 [Rx] Follow up Appointment(s)/Referral(s): None,Stated [Primary Care Provider] - 1-2 days Isaac Carlson MD [STAFF PHYSICIAN] - 1 Week Discharge Disposition: HOME SELF-CARE
[2021-03-17] MEDS ORDERED: LEVOFLOXACIN 500 MG TAB PO SCH (09:00)
== END 2021-03-17 11:14 | disposition home or self-care (01) ==
LOC: EC 14:38 → 4SSUR 16:58 → INTOOBSV 16:58 → UNDODISIN 03-17 11:14
PROVIDERS: ADMIT Urology; ATTEND Urology
DX: N13.6 Pyonephrosis (principal); A41.9 Sepsis, unspecified organism; Z87.442 Personal history of urinary calculi; Z20.822 Contact with and (suspected) exposure to COVID-19
CPT/HCPCS: 96361; 96374; 99285; 36415; 80053 ×2; 82150; 83605; 83690; 85025 ×2; 85610; 85730; 81001; 81025; 87040; 87086; 87635; 74018; 74176; 52332; G0378 ×2; C2625; C1769; J2250; J1170; J2405; J0696; J3010; J1885 ×2; J2704

== ENCOUNTER 2021-04-04 09:44 | Day surgery (SDC) | payer OTHER ==
--- NOTE | 2021-04-03 11:19 | P.GSHP ---
History of Present Illness H&P Date: 04/03/21 30 yo female with a ureteral stone left and pyonephrosis treated with a stent and antibiotics. She now comes for a left ureteroscopy and laser lithotripsy with hopeful stent removal. The risks complications and alternatives have been discussed. - Constitutional Constitutional: Denies chills, Denies fever - EENT Eyes: denies blurred vision, denies pain Ears, nose, mouth and throat: Denies headache, Denies sore throat - Cardiovascular Cardiovascular: Denies chest pain, Denies shortness of breath - Respiratory Respiratory: Denies cough, Denies 7 - Gastrointestinal Gastrointestinal: Denies abdominal pain, Denies diarrhea, Denies nausea, Denies vomiting - Genitourinary (Female) Genitourinary: Denies dysuria, Denies hematuria - Genitourinary (Male) Genitourinary: Denies dysuria, Denies hematuria - Musculoskeletal Musculoskeletal: Denies myalgias - Integumentary Integumentary: Denies pruritus, Denies rash - Neurological Neurological: Denies numbness, Denies weakness - Psychiatric Psychiatric: Denies anxiety, Denies depression - Endocrine Endocrine: Denies fatigue, Denies weight change Past Medical History Past Medical History: No Reported History History of Any Multi-Drug Resistant Organisms: None Reported Past Surgical History: No Surgical Hx Reported Past Anesthesia/Blood Transfusion Reactions: No Reported Reaction Past Psychological History: No Psychological Hx Reported Smoking Status: Never smoker Past Alcohol Use History: Occasional Past Drug Use History: None Reported - Past Family History Mother Family Medical History: Hypertension Additional Family Medical History / Comment(s): Grandfather on Paternal- colon CA. Aunt on Paternal- cervial CA Medications and Allergies Home Medications Medication Instructions Recorded Confirmed Type Ibuprofen [Motrin Ib] 800 mg PO Q8H PRN 03/16/21 03/16/21 History Ciprofloxacin HCl [Cipro] 500 mg PO Q12H 1 Days #20 tab 03/17/21 Rx Allergies Allergy/AdvReac Type Severity Reaction Status Date / Time No Known Allergies Allergy Verified 03/16/21 17:09 Surgical - Exam - General well developed, well nourished, no distress - Eyes PERRL - ENT no hearing loss - Neck no masses - Respiratory normal expansion, normal respiratory effort - Cardiovascular Rhythm: regular - Abdomen Abdomen: soft, non tender - Integumentary no rash, no growths - Neurologic normal coordination, normal sensation - Musculoskeletal normal gait, normal posture - Psychiatric oriented to time, oriented to person, oriented to place, speech is normal, memory intact Results - Imaging CT scan - abdomen: report reviewed, image reviewed CT scan - pelvis: report reviewed, image reviewed Assessment and Plan Assessment: Impression: Left ureeteral stone Plan: Left ureteroscopy with laser lithotripsy, stent removal
[2021-04-03 14:52] VITALS: BMI 27.3
[~2021-04-04 09:44] MED LIST: AMPICILLIN 1,000 MG in SODIUM CHLORIDE 0.9% 50 ML IVPB PRN; DEXAMETHASONE SOD PHOSPHATE 4 MG/ML 1 ML VIAL IV ONE; GENTAMICIN 100 MG in SODIUM CHLORIDE 0.9% 100 ML IVPB PRN; LACTATED RINGERS 1,000 ML IV SCH; LIDOCAINE 1% (10MG/ML) FOR IV START INTRADERMA PRN; MIDAZOLAM 2 MG/2 ML VIAL IV PRN; ONDANSETRON 4 MG/2 ML VIAL IVP ONE
--- NOTE | 2021-04-04 10:22 | XR ---
KUB HISTORY: Kidney stone Frontal KUB and 2 images correlated to prior CT scan dated 03/16/2021 Double-J stent is present on the left. There is a calcification superimposed over the lower pole the left kidney measuring approximately 9 mm. There are phleboliths present within the hemipelvis. There are overlying artifacts. Retained fecal debris is noted within the distribution of the colon. IMPRESSION: Left-sided nephrolithiasis, double-J stent in place.
[2021-04-04 10:45] LABS: Glucose,Whole Blood 83 mg/dL (75-99)
[2021-04-04] MEDS ORDERED: LIDOCAINE 1% INJ 10MG/ML (20 ML MDV) ONE (12:23)
[2021-04-04] MEDS ORDERED: fentaNYL (PF) 50 MCG/ML 2 ML AMP ONE (12:23)
[2021-04-04] MEDS ORDERED: PROPOFOL 10 MG/ML 20 ML VIAL IV ONE (12:23)
[2021-04-04] MEDS ORDERED: MIDAZOLAM 2 MG/2 ML VIAL ONE (12:23)
--- NOTE | 2021-04-04 13:12 | P.OP ---
Date of Procedure: 04/04/21 Postoperative Diagnosis: Left ureteral stone Procedure(s) Performed: Same Implants: Cystoscopy, left ureteral stent removal, left ureteroscopy laser lithotripsy Anesthesia: ANGELI Surgeon: Isaac Carlson Estimated Blood Loss (ml): 0 Pathology: none sent Condition: stable Disposition: PACU Indications for Procedure: Patient is 30. She recently had a stent placed for an obstructing stone with pyelonephrosis. She now comes for stent and stone removal Description of Procedure: Patient brought to the operating suite. She is given general anesthesia. She's placed lithotomy position with sterile prep and drape. Cystoscopy was performed identifying the double-J catheter on the left. His grasped and pulled to the urethral meatus. Through the double-J catheter until 35 wires passed up into the renal pelvis. The stent is removed. Over the wires passed 35-30-Sultou reentry sheath. The inner sheath is removed. Through the outer sheath flexible ureteroscope was passed in the left lower pole calyx where the stone was identified. With the 200 laser probe the stone is dusted into tiny pieces none bigger than the tip of the laser probe. At the end of the procedure there no significant remaining fragments up. The ureteroscope removed. The working sheath is removed. The bladder strain the patient's awake and returned recovery in good condition. She'll be discharged home upon recovery and follow in the office in one week. Her condition is good.
[2021-04-04 13:31] VITALS: TEMP 96.8
[2021-04-04] MEDS: HYDROmorphone 0.5 MG/0.5 ML SYRINGE IVP PRN ×2 (13:41→13:53)
[2021-04-04 14:24] VITALS: RESP 16
[2021-04-04] MEDS ORDERED: HYDROcodone/APAP 5-325MG 1 EACH TAB ONE ×2 (14:36→16:15)
[2021-04-04] MEDS ORDERED: HYDROcodone/APAP 5-325MG 1 EACH TAB PO ONE ×2 (14:40→16:15)
[2021-04-04] MEDS ORDERED: KETOROLAC 15 MG/ML 1 ML VIAL ONE (14:58)
[2021-04-04] MEDS ORDERED: LACTATED RINGERS 1,000 ML IV ONE (15:00)
[2021-04-04] MEDS ORDERED: KETOROLAC 15 MG/ML 1 ML VIAL IVP ONE ×2 (15:02→16:15)
--- NOTE | 2021-04-04 16:10 | FL ---
EXAMINATION TYPE: FL guidance operating room DATE OF EXAM: 04/04/2021 CLINICAL HISTORY: Left renal stone TECHNIQUE: Fluoroscopy. COMPARISON: Same day KUB FINDINGS: Fluoroscopic guidance was provided during procedure performed by Dr. Carlson. A total of 3 seconds of fluoroscopic time was utilized during the procedure and 2 spot images was acquired. IMPRESSION: As Above.
[2021-04-04 17:02] VITALS: BP 118/79; PULSE 56
== END 2021-04-04 17:33 | disposition home or self-care (01) ==
LOC: OR 09:44
PROVIDERS: ATTEND Urology
DX: N20.1 Calculus of ureter (principal); Z87.442 Personal history of urinary calculi
CPT/HCPCS: 81025; 74018; 52353; J2250; J1100; J2405; J2001; J3010; J1580; J0290; J1885; J2704; J1170

== ENCOUNTER 2025-03-23 20:14 | Outpatient (CLI) | payer OTHER ==
[2025-03-23 22:58] VITALS: BP 129/74; PULSE 102; RESP 16; TEMP 97.3
--- NOTE | 2025-04-01 13:37 | P.MSEPDOC ---
Presenting Problems - Arrival Data Date of Arrival on Unit: 03/23/25 Time of Arrival on Unit: 20:14 Mode of Transport: Ambulatory - Complaint OB-Reason for Admission/Chief Complaint: Other Comment: Patient presents to triage with complaints of fall around 1730 this evening, fell on belly. Medical History - Information : 5 Para: 3 Term: 3 : 0 Abortions: Spontaneous or Elective: 1 Number of Living Children: 3 - Gestational Age Gestational Age by DMITRY (wks/days): 31 Weeks and 1 Days Review of Systems - Review of Systems Constitutional: No problems Breast: No problems ENT: No problems Cardiovascular: No problems Respiratory: No problems Gastrointestinal: No problems Genitourinary: No problems Musculoskeletal: No problems Neurological: No problems Skin: No problems Vital Signs - Temperature Temperature: 97.3 F Temperature Source: Temporal Artery Scan - Pulse Pulse Oximetery Pulse Rate: 102 Pulse Assessment Method: Pulse Oximetry - Respirations Respiratory Rate: 16 Oxygen Delivery Method: Room Air O2 Sat by Pulse Oximetry: 99 - Blood Pressure Right Arm Blood Pressure: 129/74 Blood Pressure Mean: 92 Blood Pressure Source: Automatic Cuff Medical Screen Scoring - Uterine Contractions Resting: Soft to palpation - Assessment - Baby A Baseline FHR: 140 Heart Rate - NICHD Category: Category I (Normal) NST: Reactive Physician Notification - Physician Notified Physician Notified Date: 03/23/25 Physician Notified Time: 20:41 Physician: Alisa Perez New Order Received: No Maternal Triage Index - Maternal Triage Index Presenting for scheduled procedure w/no complaint: No - Stat/Priority 1 Stat Priority 1: No - Urgent/Priority 2 Urgent Priority 2: Yes Provider Notified: Alisa Perez Provider Notified Time: 21:40 Criteria Met for Priority 2: Patient presents to triage with complaints of fall around 1730 this evening, fell on belly. Rn reported on , 31 1/7 GA, complaint of fall at home around 1730 this evening in which she fell on her belly. Patient denies vaginal bleeding and leaking fluid, Patient feeling baby move but is nervous he is moving less now than before the fall. Reactive NST, No contraction via patient. @ traced via TOCO upon arrival not felt by patient, movement is noted to be audible via FHM during this time. Orders to monitor for one hour and if mom and baby are still doing okay patient can be discharged home with instructions to follow of with OB in office. Disposition - Disposition OB Disposition: Discharge to home Discharge Date: 03/23/25 Discharge Time: 21:37 I agree with the RN Medical Screening Exam: Yes Physician's MSE Comment: I have neither seen nor examined the patient Case reviewed; plan agreed upon as documented in EMR&OBIX.: Yes Diagnosis: ACUTE PAIN DUE TO TRAUMA
== END 2025-03-23 21:37 | disposition home or self-care (01) ==
LOC: FBPOP 20:14
PROVIDERS: ATTEND Obstetrics & Gynecology
DX: O9A.213 Injury, poisoning and certain other consequences of external causes complicating pregnancy, third trimester (principal); G89.11 Acute pain due to trauma; W19.XXXA Unspecified fall, initial encounter; Z3A.31 31 weeks gestation of pregnancy
CPT/HCPCS: 59025; G0463; 99213